=== PATIENT | male | born 1960 | race African-American/Black ===

== ENCOUNTER → 2021-06-06 10:28 | Outpatient (BNVA) | payer OTHER, SELFPAY | PROVIDERS: PCP Physician Assistant Medical; Visit Provider Nurse Practitioner Family | DX: R06.83 Snoring (principal); R06.81 Apnea, not elsewhere classified; R40.0 Somnolence; Z79.02 Long term (current) use of antithrombotics/antiplatelets | CPT/HCPCS: 99202 ==

== ENCOUNTER → 2021-08-28 10:53 | Outpatient (REF) | payer OTHER, SELFPAY | LOC: HO.SL 10:53 | PROVIDERS: PCP Physician Assistant Medical; Visit Provider Nurse Practitioner Family | DX: Z13.89 Encounter for screening for other disorder (principal) ==

== ENCOUNTER → 2021-11-26 14:55 | Outpatient (REF) | payer OTHER, SELFPAY | LOC: HO.SL 14:55 | PROVIDERS: PCP Physician Assistant Medical; Visit Provider Nurse Practitioner Family | DX: Z13.89 Encounter for screening for other disorder (principal) ==

== ENCOUNTER → 2022-03-25 19:30 | Outpatient (REF) | payer OTHER, SELFPAY | LOC: HO.SL 19:30 | PROVIDERS: PCP Physician Assistant Medical; Visit Provider Nurse Practitioner Family | DX: G47.33 Obstructive sleep apnea (adult) (pediatric) (principal); R40.0 Somnolence | CPT/HCPCS: 95810 ==